=== PATIENT | female | born 1980 | race Caucasian/White ===

== ENCOUNTER 2021-08-22 01:35 | Emergency (ER) | payer OTHER ==
[~2021-08-22] VITALS: Ht 160 cm; Wt 77.1 kg
[2021-08-22] MEDS ORDERED: SPIRONOLACTONE50 MG PO (01:48)
[2021-08-22] MEDS ORDERED: PAXIL20 MG PO (01:49)
[2021-08-22] MEDS ORDERED: BIRTH CONTROL PILL (01:49)
[2021-08-22] MEDS ORDERED: BUSPIRONE HCL5 MG PO (01:49)
[2021-08-22 03:17] LABS: ABSOLUTE BASOPHILS 0.1 thou/uL (0.0-0.2); ABSOLUTE EOSINOPHILS 0.1 thou/uL (0.0-0.7); ABSOLUTE LYMPHOCYTES 2.2 thou/uL (0.8-5.3); ABSOLUTE MONOCYTES 0.7 thou/uL (0.0-1.2); ABSOLUTE NEUTROPHILS 10.8 thou/uL (1.6-8.1); BASOPHILS 0.6 %; EOSINOPHILS 0.4 %; HEMATOCRIT 38.5 % (37.0-47.0); HEMOGLOBIN 12.8 gm/dL (12.0-15.0); MCH 28.7 pg (26.0-34.0); MCHC 33.3 g/dL (28.0-37.0); MCV 86.1 fL (80.0-100.0); MONOCYTES 5.2 %; MPV 8.7 fl. (7.2-11.1); NUCLEATED RBCS 0 /100WBC; PLATELET COUNT* 233 thou/uL (150-400); POLYS 77.8 %; RBC 4.47 mil/uL (4.20-5.00); RDW-CV 13.4 % (10.5-14.5)
[2021-08-22 03:25] LABS: CALCIUM 8.6 mg/dL (8.5-10.1); POTASSIUM 3.3 mmol/L (3.5-5.1)
[2021-08-22 03:35] LABS: ALBUMIN 3.4 g/dL (3.4-5.0); TOTAL BILIRUBIN 0.4 mg/dL (<0.1-1.0); TOTAL PROTEIN 6.9 g/dL (6.4-8.2)
[2021-08-22 05:16] LABS: URINE BILIRUBIN NEGATIVE (Negative); URINE BLOOD 3+ (Negative); URINE CLARITY CLOUDY; URINE COLOR YELLOW; URINE GLUCOSE-RANDOM NEGATIVE (Negative); URINE KETONES NEGATIVE (Negative); URINE LEUKOCYTES-REFLEX 1+ (Negative); URINE NITRITE-REFLEX POSITIVE (Negative); URINE PROTEIN 3+ (Negative); URINE SPECIFIC GRAVITY 1.025 (1.005-1.030); URINE UROBILINOGEN 0.2 E.U./dl (0.2-1.0)
[2021-08-22 05:27] LABS: BACTERIA-REFLEX >30 Many /HPF (None Seen); CASTS None Seen /LPF (None Seen); CRYSTALS None Seen /LPF (None Seen); MUCUS 4-6 Moderate strn/LPF (None Seen); SQUAMOUS 0-3 Few /LPF (0-3); URINE WBC-REFLEX >25 Many /HPF (0-5); WBC CLUMPS Moderate (None Seen)
[2021-08-22] MEDS ORDERED: ZOFRAN ODT4 MG PO (06:31)
[2021-08-22] MEDS ORDERED: NORCO5 PO (06:31)
[2021-08-22] MEDS ORDERED: MACROBID 100 M100 M1 PO (06:31)
[2021-08-22 07:02] VITALS: BP 94/49
--- NOTE | 2021-08-22 10:00 | EKG ---
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[place] : 1980 Requested By: Sandra Edmond Order Number: [id number] MD: Sean Fung Measurements Intervals [place] Rate: 72 P: 30 NC: 136 QRS: -39 QRSD: 90 T: 52 QT: 377 QTc: 413 Interpretive Statements Sinus rhythm nonspecific ST segment changes Left axis deviation Borderline low voltage, extremity leads Baseline wander in lead(s) V6 No previous ECG available for comparison Electronically Signed On 08-22-2021 10:00:13 CDT by Sean Fung [email or web address] <ELECTRONICALLY SIGNED> By: Sean Fung MD, FACC 08/22/21 1000 0140 Sean Fung MD, [facility] /EPI
--- NOTE | 2021-08-22 10:01 | EKG ---
[place] [address] ELECTROCARDIOGRAM REPORT Name: ARNOLDO DRAKE Room: 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1980 Requested By: Sandra Edmond Order Number: [id number] MD: Sean Fung Measurements Intervals [place] Rate: 65 P: 21 NE: 144 QRS: -33 QRSD: 98 T: 36 QT: 416 QTc: 433 Interpretive Statements Sinus rhythm nonspecific ST segment changes Left axis deviation Borderline low voltage, extremity leads Compared to ECG 08/22/2021 01:40:44 No significant changes Electronically Signed On 08-22-2021 10:01:31 CDT by Sean Fung [email or web address] <ELECTRONICALLY SIGNED> By: Sean Fung MD, FACC 08/22/21 1001 0 0 Sean Fung MD, [facility] /EPI
== END 2021-08-22 07:02 | disposition home or self-care (01) ==
LOC: M.ERS 01:35
PROVIDERS: Personal Emergency Response Attendant
DX: N39.0 Urinary tract infection, site not specified (principal); Z79.899 Other long term (current) drug therapy; Z88.0 Allergy status to penicillin